=== PATIENT | female | born 1990 | race Caucasian/White ===

== ENCOUNTER → 2018-05-13 09:16 | Outpatient (CLI) | payer OTHER, SELFPAY ==
--- NOTE | 2018-05-13 | ASPOS_PTH ---
PATIENT: ZO MONET LOC: [facility] U#:[id number] AGE/SX: 34/F ROOM: RE05/13/[address]: Dr. Rah Ruff MD : 1990 BED: DIS: SPEC #: [id number] RECD: 05/13/18 11:12 STATUS: PHILLIP RENubia #: [id number] NYDIA: 05/13/18 00:[address]: Rah Ruff DEPT: CYTOLOGY RECD BY: Yoav Muñiz ENTERED: 05/13/18 11:17 SP TYPE: ASP HERE OTHR DR: No Primary Care Phys Tissues: Buccal mucosa, NOS Procedures: Pap Stain (control) Special Stain Group II Surgery Specimen Level IV Diff Quik Stain (control) Cell Block Cytology Other Fine Needle Asp on Site HEADER OPERATION: FNA left buccal mucosal mass PRE-OP DIAGNOSIS: Left buccal mucosal mass TISSUE SUBMITTED: Left inside cheek mass DIAGNOSIS CYTOLOGY Fine needle aspiration, left buccal mucosal mass (smears and cell block): Negative for malignant cells. See comment. AM:amalia 05/14/18 COMMENT The specimen is evaluated at the time of FNA by Dr. Gonzalez. Immediate Evaluation = Consistent with benign mucous cyst. The specimen contains abundant mucoid material and macrophages consistent with benign mucous cyst of probably salivary gland origin. Also present are amorphous crystalline debris. There is no evidence of malignancy. Clinical correlation is suggested. CYTOLOGY STUDY Slides are reviewed. CYTOLOGY GROSS Received is 1 ml of clear mucoid material labeled with the patient's name, and designated left inside cheek mass. Four imprints and three paps are made from the submitted fluid and the rest is added to [employer]to[employer] for cell block preparation. Submitted for cytology study. / AM:amalia 05/13/18 TC:5 CPT: 08334, 44580, 52567, 53853
== END ==
PROVIDERS: Referring Provider Otolaryngology Otolaryngology/Facial Plastic Surgery; Visit Provider Otolaryngology Otolaryngology/Facial Plastic Surgery
DX: K11.6 Mucocele of salivary gland (principal)
CPT/HCPCS: 10021; 88161; 88305; 88313

== ENCOUNTER → 2023-05-29 | Outpatient (CLI) | payer OTHER, SELFPAY ==
--- NOTE | 2023-05-29 14:14 | US_ITS ---
STUDY: ULTRASOUND BREAST - RIGHT REASON FOR EXAM: Female, 32 years old. Palpable lump in the right breast. TECHNIQUE: Axial and longitudinal images of the RIGHT breast were performed with a high resolution ultrasound transducer. # OF IMAGES: 20 COMPARISON: Comparison is made with prior mammogram done earlier in the day. FINDINGS: RIGHT Breast: The lower outer quadrant of the right breast was examined with ultrasound. There is fibroglandular tissue. No sonographic abnormality is seen. US/Breast Limited Unilateral IMPRESSION: No sonographic abnormality is seen. ASSESSMENT CATEGORY: BIRADS Category 1: Negative. A letter regarding these results will be sent to the patient by the facility within 30 days. Electronically Signed: Alan Crowley MD at 15:27 EST ,
--- NOTE | 2023-05-29 14:14 | BI_ITS ---
MAMMOGRAPHY - BILATERAL DIAGNOSTIC REASON FOR EXAM: Female, 32 years old. History of prior bilateral breast reduction surgery. Right breast lump. PERTINENT HISTORY: Grandmothers with breast cancer. TECHNIQUE: Digital bilateral breast bayron (3D mammographic acquisition) in the CC and MLO projections. 2-D mediolateral oblique (MLO) and craniocaudad (CC) views of both breasts were obtained. CAD: Full Field Digital Mammography with Computer Added Detection was performed. COMPARISON: None. Baseline examination. FINDINGS: Breast Composition: There are scattered areas of fibroglandular density. There are no dominant masses or suspicious calcifications. No other significant abnormalities are identified. BI/DIAG MAMM W/CAD, BILAT IMPRESSION: Negative diagnostic mammogram. With the patient''s history of a palpable lump in the slightly inferior lateral aspect of the right breast, correlation with ultrasound is recommended. ASSESSMENT CATEGORY: BIRADS Category 0: Incomplete. Need additional imaging evaluation. A letter regarding these results will be sent to the patient by the facility within 30 days. Approximately 10% of breast cancers are not detected by mammography. A normal mammogram should not delay biopsy of a clinically suspicious abnormality. Electronically Signed: Alan Crowley MD at 15:15 EST ,
== END | disposition home or self-care (01) ==
LOC: OPBI 14:22
DX: N64.4 Mastodynia (principal)
CPT/HCPCS: 76642; 77062; 77066; G0279

== ENCOUNTER → 2025-03-08 | Outpatient (CLI) | payer OTHER, SELFPAY ==
--- NOTE | 2025-03-08 13:21 | BI_ITS ---
EXAM: SCRN MAMM (CAD)W/DEO BILAT DATE: 03/08/2025 CLINICAL HISTORY: F, Age 34 y/o , SCREENING TECHNIQUE: Procedure Code: [id number] Modality: MG Procedure: SCRN MAMM (CAD)W/DEO BILAT COMPARISON: Prior exam(s) dated 05/29/2023. FINDINGS: TISSUE DENSITY: There are scattered areas of fibroglandular density. Bilateral Breast Mammographic Findings: Benign-appearing intramammary lymph nodes are seen in the superior, far posterior aspect of both the right and left breasts. Benign-appearing round and punctate calcifications are seen in both breasts. No suspicious masses, suspicious clustered microcalcifications, architectural distortion or secondary signs of malignancy is identified in either breast. BI/SCRN MAMM (CAD)W/DEO BILAT IMPRESSION: Benign screening mammogram. OVERALL FINAL ASSESSMENT BI-RADS 2: BENIGN RECOMMENDATION: Routine annual follow-up in 1 Year Additional Recommendation none A letter with findings and recommendations will be mailed to the patient. Reading Location: [id number]
== END | disposition home or self-care (01) ==
DX: Z12.31 Encounter for screening mammogram for malignant neoplasm of breast (principal)
CPT/HCPCS: 77063; 77067